=== PATIENT | male | born 1970 | race Caucasian/White ===

== ENCOUNTER 2018-02-09 14:31 | Emergency (ER) | END 2018-02-09 15:01 | disposition home or self-care (01) ==

== ENCOUNTER 2018-11-20 21:34 | Emergency (ER) | payer OTHER ==
[~2018-11-20] VITALS: Wt 95.8 kg
[~2018-11-20 21:34] MED LIST: CEPH-443 PO; IBUP-1542 PO
[2018-11-20 21:38] VITALS: BP 132/76
[2018-11-21] MEDS ORDERED: ALBUTEROL 0.083% (NEB) 2.5 MG/3 ML AMP HHN STA (00:25)
[2018-11-21] MEDS ORDERED: predniSONE 20 MG TAB PO ONE (00:30)
[2018-11-21] MEDS ORDERED: AZIT250T PO (01:21)
[2018-11-21] MEDS ORDERED: PRED20TA PO (01:21)
[2018-11-21] MEDS ORDERED: ALBU18HF INHALATION (01:21)
[2018-11-21] MEDS ORDERED: ACET500C5 PO (01:21)
--- NOTE | 2018-11-21 01:29 | ERD ---
ER Documentation Chief Complaint Chief Complaint 5d history: fever, cough, congestion; no relief w nyquil HPI 48-year-old male presents with cough and fever and body aches for the last 3 da ys. Is taking NyQuil. May have wheezing at home. Denies chest pain, vomiting, abdominal pain. ROS All systems reviewed and are negative except as per history of present illness. Medications Home Meds Active Scripts Acetaminophen* (Tylophen*) 500 Mg Capsule, 1 CAP PO Q6H PRN for PAIN AND OR ELEVATED TEMP, #15 CAP Prov:RICHIE WRAY MD 11/21/18 Albuterol Sulfate* (Ventolin HFA*) 18 Gm Hfa.aer.ad, 2 PUFF INHALATION Q4H, #1 INHALER Prov:RICHIE WRAY MD 11/21/18 Prednisone* (Prednisone*) 20 Mg Tab, 40 MG PO DAILY for 4 Days, TAB Start January 21, 2019 Prov:RICHIE WRAY MD 11/21/18 Azithromycin* (Zithromax*) 250 Mg Tablet, 250 MG PO .ZPACK DIRECTED, #6 TAB TAKE 500 MG (2 TABS) THE FIRST DAY THEN 250 MG (1 TAB) DAYS 2-5 Prov:RICHIE WRAY MD 11/21/18 Cephalexin* (Keflex*) 500 Mg Capsule, 500 MG PO TID for 7 Days, CAP Prov:YOLI ABEL PA-C 02/09/18 Ibuprofen* (Motrin*) 600 Mg Tab, 600 MG PO Q6, #30 TAB Prov:YOLI ABEL PA-C 02/09/18 Allergies Allergies: Coded Allergies: No Known Allergy (Unverified , 11/20/18) PMhx/Soc Medical and Surgical Hx: pt denies Surgical Hx Hx Miscellaneous Medical Probl: Yes (THYROID DIS) Hx Alcohol Use: No Hx Substance Use: No Hx Tobacco Use: No Smoking Status: Never smoker FmHx Family History: No diabetes, No coronary disease, No other Physical Exam Vitals Vital Signs Date Temp Pulse Resp B/P (MAP) Pulse Ox O2 O2 Flow FiO2 Time Delivery Rate 11/21/18 85 16 93 21 00:47 11/20/18 98.2 88 22 132/76 94 21:38 (94) Physical Exam Const: No acute distress Head: Atraumatic Eyes: Normal Conjunctiva ENT: Normal External Ears, Nose and Mouth. TMs normal and oropharynx normal. Neck: Full range of motion. No meningismus. Resp: Clear to auscultation bilaterally. Rhonchi and wheezing without rales or retractions. Cardio: Regular rate and rhythm, no murmurs Abd: Soft, non tender, non distended. Normal bowel sounds Skin: No petechiae or rashes Back: No midline or flank tenderness Ext: No cyanosis, or edema Neur: Awake and alert Psych: Normal Mood and Affect Results 24 hrs Current Medications Medications Dose Sig/Karina Start Time Status Last (Trade) Ordered Route PRN Stop Time Admin Dose Reason Admin Prednisone 60 mg ONCE ONCE 11/21/18 DC 11/21/18 (Prednisone) PO 00:30 11/21/18 00:43 00:31 Albuterol 5 mg ONCE STAT 11/21/18 DC 11/21/18 (Proventil HHN 00:25 11/21/18 00:47 0.083% (Neb)) 00:27 Procedures/MDM Chest X-ray 1V Interpreted by me: Soft Tissue: No acute abnormalities Bones: No acute abnormalities Mediastinum/Cardiac Silhouette/Lungs: No acute abnormalities impression-subsegmental basilar atelectasis without findings of infiltrate, additional acute abnormalities. Patient given prednisone 60 mg and albuterol treatment. Patient had clear lungs on serial exam. Patient presents with productive coughing, fever, mild wheezing without signs of hypoxemia, pneumonia, chest pain, respiratory distress. We will treat empirically with Zithromax, prednisone, Ventolin, Tylenol, primary care follow-up and return precautions.. The patient was stable with no new complaints during the ER course. Clinically, there is no current evidence to suggest meningitis, sepsis, acute abdomen, pneumonia, stroke, acute coronary syndrome, pulmonary embolism, aortic dissection or any other emergent condition appearing to require further evaluation or hospitalization. Patient counseled regarding my diagnostic impression and care plan. Prior to discharge all questions answered. Pt agrees with treatment plan and understands strict return precautions. Pt is instructed to follow up with primary care provider within 24- 48 hours. Precautionary instructions provided including instructions to return to the ER if not improving or for any worsening or changing symptoms or concerns. Departure Diagnosis: Primary Impression: Wheeze Additional Impression: URI, acute Condition: Stable Patient Instructions: Bronchitis With Wheezing (Adult) Additional Instructions: No pneumonia on x-ray. Recheck with primary doctor or for new or worsening symptoms. RICHIE WRAY MD Nov 21, 2018 01:29
[2018-11-21 01:45] VITALS: PULSE 93; RESP 20
== END 2018-11-21 01:46 | disposition home or self-care (01) ==
LOC: FTE 21:34
DX: J06.9 Acute upper respiratory infection, unspecified (principal); R06.2 Wheezing
CPT/HCPCS: 71045; 94664; J7512; Z7502; Z7610